=== PATIENT | female | born 1960 | race African-American/Black ===

== ENCOUNTER → 2016-09-18 | Outpatient (CLI) | payer MEDICARE, MEDICAID ==
--- NOTE | 2016-09-19 17:19 | WOMENS IMAGING REPORT ---
EXAM DESCRIPTION: BILAT SCREENING MAMMO W/CAD COMPLETED DATE/TIME: 09/19/2016 3:24 pm REASON FOR STUDY: ROUTINE BILATERAL SCREENING;Z12.31 Z12.31 ENCNTR SCREEN MAMMOGRAM FOR MALIGNANT N EOPLASM OF CHUY COMPARISON: Multiple since 2008 TECHNIQUE: Standard craniocaudal and mediolateral oblique views of each breast recorded using 99degrees Customa l acquisition. LIMITATIONS: None. FINDINGS: No masses, calcifications or architectural distortion. No areas of suspicion. Read with the assistance of CAD. .[facility] - R2 Cenova Version 1.3 .[facility] - R2 Cenova Version 1.3 .[facility] - R2 Cenova Version 2.4 .[facility] - R2 Cenova Version 2.4 .[facility] - R2 Door Slinger Version 9.2 BREAST DENSITY: c. The breasts are heterogeneously dense, which may obscure small masses. BIRAD: 1 NEGATIVE RECOMMENDATION: ROUTINE SCREENING Please consider bilateral screening tomosynthesis in September 2016, given heterogeneously dense tissue COMMENT: PATIENT NOTIFIED BY LETTER. The [employer] recommends an annual screening mammogram for women aged 40 years or over. Each patient will receive a reminder prior to the anniversary date of her mammogram. The [employer] (ACR) has developed recommendations for screening MRI of the breast s in certain patient populations, to be used in conjunction with mammography. Breast MRI surveillanc e may be appropriate for women with more than 20% lifetime risk of developing breast cancer as deter mined by genetic testing, significant family history of the disease, or history of mantle radiation f or Hodgkins Disease. ACR Practice Guidelines 2008. TECHNICAL DOCUMENTATION: FINDING NUMBER: (1) ASSESSMENT: (1) JOB ID: [id number] [employer]- All Rights Reserved
== END ==
LOC: WI 13:38
PROVIDERS: ATTEND Nurse Practitioner Psychiatric/Mental Health
DX: Z12.31 Encounter for screening mammogram for malignant neoplasm of breast (principal)
CPT/HCPCS: 77067; G0202

== ENCOUNTER 2017-02-19 16:32 | Inpatient (IN) | payer MEDICAID, MEDICARE ==
--- NOTE | 2017-02-19 17:05 | ER Document Report ---
ED Medical Screen (RME) - General Chief Complaint: S/S of Possible Stroke Stated Complaint: LEFT SIDE BODY TINGLING,SLURRED SPEECH Notes: Patient is a 56-year-old female presenting to the emergency department for possible stroke. Patient presents with left-sided weakness, numbness, slurred speech and left facial droop. Patient states her symptoms were onset in the late afternoon on Saturday. Patient states that when she uses her left arm it is very weak and her left leg keeps "giving out" when she tries to walk or stand. Patient also complains of some intermittent blurry vision. Patient has a history of hypertension but has not been taking her medication for 1 week because she was out of town and did not have them with her. Patient states she takes 3 medications for hypertension but does not know the names of them. Patient states she has a history of a mild CVA. I have greeted and performed a rapid initial assessment of this patient. A comprehensive ED assessment and evaluation of the patient, analysis of test results and completion of the medical decision making process will be conducted by additional ED providers. TRAVEL OUTSIDE OF THE [place] IN LAST 30 DAYS: No - Related Data Allergies/Adverse Reactions: codeine [Codeine] Adverse Reaction (Verified 02/19/17 19:00) Nausea Past Medical History - Past Medical History Cardiac Medical History: Reports: Hx Hypertension Denies: Hx Coronary Artery Disease, Hx Heart Attack Pulmonary Medical History: Denies: Hx Asthma, Hx Bronchitis, Hx COPD, Hx Pneumonia Neurological Medical History: Denies: Hx Cerebrovascular Accident, Hx Seizures Renal/ Medical History: Denies: Hx Peritoneal Dialysis Musculoskeltal Medical History: Reports Hx Arthritis Psychiatric Medical History: Reports: Hx Depression Past Surgical History: Reports: Hx Appendectomy, Hx Hysterectomy - Immunizations Hx Diphtheria, Pertussis, Tetanus Vaccination: No Physical Exam - Vital signs Vitals: Temp Pulse Resp BP Pulse Ox 98 F 62 16 194/99 H 100 02/19/17 16:39 02/19/17 16:39 02/19/17 16:39 02/19/17 16:39 02/19/17 16:39 - Notes Notes: GENERAL: Alert, interacts well. HEAD: Left-sided facial droop. LUNGS: Clear to auscultation bilaterally, no wheezes, rales, or rhonchi. No respiratory distress. HEART: Regular rate and rhythm. No murmurs, gallops, or rubs. EXTREMITIES: Left upper extremity pronator drift. Left lower extremity weakness. NEUROLOGICAL: Alert and oriented x3. Normal speech. Course - Vital Signs Vital signs: Temp Pulse Resp BP Pulse Ox 98.6 F 57 L 16 127/78 H 98 02/22/17 09:22 02/22/17 09:22 02/22/17 09:22 02/22/17 09:22 02/22/17 09:22 - Laboratory Result Diagrams: 02/20/17 05:50 02/20/17 05:50 Laboratory results interpreted by me: 02/19/17 02/19/17 02/19/17 17:46 17:46 17:46 Hgb 10.8 L Hct 33.3 L MCH 26.7 L RDW 16.7 H BUN 24 H Creatinine 1.34 H Est GFR ( Amer) 49 L Est GFR (Non-Af Amer) 41 L TSH 0.42 L Doctor's Discharge - Discharge Clinical Impression: Stroke-like symptoms, Hypertensive urgency, CKD (chronic kidney disease), stage III, Noncompliance Condition: Stable Disposition: ADMITTED INPATIENT Scribe Documentation - Scribe Written by Anuradha:: Anuradha Montgomery, 02/19/2017 17:01 acting as scribe for :: Theresa
--- NOTE | 2017-02-19 17:19 | ER Document Report ---
ED Neuro Symptoms/Deficit <DANIKACOREY Deluca - Last Filed: 02/19/17 19:48> - General Mode of Arrival: Ambulatory Information source: Patient Notes: Patient is a 56-year-old female who presents to the emergency department today with complaints of left-sided weakness beginning 2 days ago. Patient admits to being noncompliant with her blood pressure medications. Patient was hypertensive on arrival. Patient states her left side has been weak since Saturday (2 days ago). Patient states she has a history of lupus. TRAVEL OUTSIDE OF THE [place] IN LAST 30 DAYS: No - HPI Onset: Other Symptoms are: Constant Duration: Continues in ED <SURAJ SNIDER - Last Filed: 02/19/17 20:03> <MAGDA PUGH - Last Filed: 02/19/17 23:28> - General Chief Complaint: S/S of Possible Stroke Stated Complaint: LEFT SIDE BODY TINGLING,SLURRED SPEECH Time Seen by Provider: 02/19/17 17:04 - Related Data Allergies/Adverse Reactions: codeine [Codeine] Adverse Reaction (Verified 02/19/17 19:00) Nausea Past Medical History - General Information source: Patient - Social History Smoking Status: Never Smoker Cigarette use (# per day): No Frequency of alcohol use: None Drug Abuse: None Lives with: Family Family History: Reviewed & Not Pertinent, CAD - Mother had a heart attack Patient has suicidal ideation: No Patient has homicidal ideation: No - Past Medical History Cardiac Medical History: Reports: Hx Hypertension Musculoskeltal Medical History: Reports Hx Arthritis Psychiatric Medical History: Reports: Hx Depression Past Surgical History: Reports: Hx Appendectomy, Hx Hysterectomy - Immunizations Hx Diphtheria, Pertussis, Tetanus Vaccination: No <SURAJ SNIDER - Last Filed: 02/19/17 20:03> Review of Systems - Review of Systems Constitutional: No symptoms reported EENT: No symptoms reported Cardiovascular: No symptoms reported Respiratory: No symptoms reported Gastrointestinal: No symptoms reported Genitourinary: No symptoms reported Female Genitourinary: No symptoms reported Musculoskeletal: No symptoms reported Skin: No symptoms reported Hematologic/Lymphatic: No symptoms reported Neurological/Psychological: See HPI, Weakness - left sided weakness, Headaches -: Yes All other systems reviewed and negative <SURAJ SNIDER - Last Filed: 02/19/17 20:03> Physical Exam - Vital signs Vitals: Temp Pulse Resp BP Pulse Ox 98 F 62 16 194/99 H 100 02/19/17 16:39 02/19/17 16:39 02/19/17 16:39 02/19/17 16:39 02/19/17 16:39 <DANIKACOREY Deluca - Last Filed: 02/19/17 19:48> - Vital signs Vitals: Temp Pulse Resp BP Pulse Ox 98 F 84 16 216/103 H 100 02/19/17 16:39 02/19/17 16:39 02/19/17 16:39 02/19/17 16:39 02/19/17 16:39 <SURAJ SNIDER - Last Filed: 02/19/17 20:03> - Vital signs Vitals: Temp Pulse Resp BP Pulse Ox 98 F 62 16 194/99 H 100 02/19/17 16:39 02/19/17 16:39 02/19/17 16:39 02/19/17 16:39 02/19/17 16:39 Interpretation: Hypertensive - General General appearance: Alert In distress: Mild - HEENT Head: Normocephalic, Atraumatic Eyes: Other - exopthalmos Conjunctiva: Normal Cornea: Normal Extraocular movements intact: Yes Eyelashes: Normal Pupils: PERRL Mouth/Lips: Normal Pharynx: Normal Neck: Normal - Respiratory Respiratory status: No respiratory distress Breath sounds: Normal - Cardiovascular Rhythm: Regular - Abdominal Inspection: Normal Tenderness: Nontender - Back Back: Normal - Extremities General upper extremity: Normal inspection, Nontender General lower extremity: Normal inspection, Nontender - Neurological Neuro grossly intact: No Cognition: Normal Orientation: AAOx4 [place] Coma Scale Eye Opening: Spontaneous [place] Coma Scale Verbal: Oriented Jose Ramon Coma Scale Motor: Obeys Commands Jose Ramon Coma Scale Total: 15 Cranial nerves: Facial palsy Motor strength normal: RUE, RLE. 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 Sensory: Normal - Psychological Associated symptoms: Normal affect, Normal mood - Skin Skin Temperature: Warm Skin Moisture: Dry Skin Color: Normal <MAGDA PUGH - Last Filed: 02/19/17 23:28> Course - Vital Signs Vital signs: Temp Pulse Resp BP Pulse Ox 98 F 76 17 186/104 H 98 02/19/17 16:39 02/19/17 17:39 02/19/17 19:21 02/19/17 19:21 02/19/17 19:21 - Laboratory Result Diagrams: 02/19/17 17:46 02/19/17 17:46 Laboratory results interpreted by me: 02/19/17 02/19/17 17:46 17:46 Hgb 10.8 L Hct 33.3 L MCH 26.7 L RDW 16.7 H BUN 24 H Creatinine 1.34 H Est GFR ( Amer) 49 L Est GFR (Non-Af Amer) 41 L <COREY GARNICA - Last Filed: 02/19/17 19:48> - Vital Signs Vital signs: Temp Pulse Resp BP Pulse Ox 98 F 84 16 216/103 H 100 02/19/17 16:39 02/19/17 16:39 02/19/17 16:39 02/19/17 16:39 02/19/17 16:39 - Laboratory Result Diagrams: 02/19/17 17:46 02/19/17 17:46 <SURAJ SNIDER - Last Filed: 02/19/17 20:03> - Re-evaluation Re-evalutation: 02/19/17 20:22 Patient is a 56-year-old female who comes in complaining of left-sided weakness. Patient was last normal apparently on Saturday. Patient's symptoms are improving. Patient has also been extremely hypertensive and noncompliant with her medications. Patient blood pressure responded well to labetalol but apparently she vomited after. Patient is going to be tested with swallow evaluation and given her home Norvasc. No acute findings on CT. Patient is not a candidate for lytics. MRI MRA has been ordered. Patient will be admitted to Dr. Dean - Vital Signs Vital signs: Temp Pulse Resp BP Pulse Ox 98 F 76 15 198/107 H 98 02/19/17 16:39 02/19/17 17:39 02/19/17 19:14 02/19/17 19:14 02/19/17 19:14 - Laboratory Result Diagrams: 02/19/17 17:46 02/19/17 17:46 Laboratory results interpreted by me: 02/19/17 02/19/17 17:46 17:46 Hgb 10.8 L Hct 33.3 L MCH 26.7 L RDW 16.7 H BUN 24 H Creatinine 1.34 H Est GFR ( Amer) 49 L Est GFR (Non-Af Amer) 41 L - Diagnostic Test Radiology reviewed: Reports reviewed - EKG Interpretation by Me EKG shows normal: Sinus rhythm Rate: Normal Rhythm: NSR <MAGDA PUGH - Last Filed: 02/19/17 23:28> Critical Care Note - Critical Care Note Total time excluding time spent on procedures (mins): 45 - To the management of left-sided weakness, multiple re-evaluations, counseling of patient and family <MAGDA PUGH - Last Filed: 02/19/17 23:28> ED Alteplase [employer]/Exc Criteria - Inclusion Criteria: 1: Patient presented to ED within 3 hours of acute ischemic stroke symptom onset ? -: No 2: Did baseline CT exclude intracranial hemorrhage and/or other risk factors? -: Yes 3: Is the age of the patient 18 years of age or greater? : If any of the above questions are answered "NO" then stop, patient is not a candidate for Alteplase, : If all of the above questions are answered "YES" then continue with Exclusion Criteria. - Exclusion Criteria: 1: Is there evidence of intracranial hemorrhage on baseline CT? 2: Is there suspicion of subarachnoid hemorrhage (even if CT negative)? 3: Is there a history of serious head trauma, recent previous stroke or ME within 3 months? 4: Does the patient have a clinical presentation consistent with ME or post-ME pericarditis? 5: Is there history of intracranial hemorrhage? 6: On repeated measurement is Systolic BP greater than 185mmHg or Diastolic BP greater that 110 mmHg and is aggressive treatment needed to reduce blood pressure to these limits (e.g. constant infusion of an anti-hypertensive)? 7: Did the patient awake with stroke symptoms? 8: Has the patient had a lumbar puncture or an arterial puncture at a non- compressile site within 7 days? 9: With in the last 14 days did the patient have surgery or major trauma? 10: Is the patient or less than 2 weeks? 11: Was there any active bleeding or acute trauma? 12: Does the patient have intracranial neoplasm, arteriovenous malformation or aneurysm? 13: Does the patient have abnormal glucose (less than 50 or greater than 400mg/ dl)? Record glucose in Comment. 14: Patient has rapidly improving symptoms at the time Alteplase is to be Administered. -: Yes 15: Does the patient have any risks for bleeding, including but not limited to: a.: Current use of Coumadin with PT greater than 15 seconds or INR greater than 1.7. b.: Current use of Pradaxa (Dabigatran). c.: Heparin administereed within the past 48 hours and PTT elevated. d.: Platelet count less than 100,000/mm. e.: Major surgery or serious trauma within 14 days. f.: Gastrointestinal or gynecological urinary bleeding within 14 days. g.: Myocardial Infarction (ME) within 3 months. : If the answer to any of the above questions is "YES" then stop, the patient is not a candidate for Alteplase. : If the answer to all of the above questions is "NO" then the patient may be eligible for the Administration of Alteplase. : If the patient is noted to have seizure activity at onset of Stroke symptoms; Consult Neurologist for further evaluation. - The patient is: -: Included and is eligible to receive Alteplase. *Initiate bed placement at higher level of care* --: No Reviewd risks & benefits of thrombolytic therapy: I have reviewed the risks and benefits of thrombolytic therapy with the patient and/or his/her family. -: Excluded and not eligible to receive Alteplase for the above exclusions. --: Yes -: Excluded and not eligible to receive Alteplase for other reasons (specify in comments): - Diagnosis of TIA: -: Patient presented with transient symptoms that are now resolved and no other neurologic findings are currently present. List symptoms in comments. -: Yes -: Patient is NOT a candidate for tPA. -: Yes -: ____(put name in comment) has been consulted for admission and continued evaluation of risk factor assessment. <MAGDA PUGH - Last Filed: 02/19/17 23:28> ED NIH Stroke Scale Discharge <COREY GARNICA - Last Filed: 02/19/17 19:48> <SURAJ SNIDER - Last Filed: 02/19/17 20:03> - Discharge Admitting Provider: [facility] Admitted: BARRETT Ling Attestation: 02/19/17 23:28 I personally performed the services described in the documentation, reviewed and edited the documentation which was dictated to the scribe in my presence, and it accurately records my words and actions. <MAGDA PUGH - Last Filed: 02/19/17 23:28> - Discharge Clinical Impression: Stroke-like symptoms, Hypertensive urgency, CKD (chronic kidney disease), stage III, Noncompliance Condition: Stable Disposition: ADMITTED INPATIENT Scribe Documentation - Scribe Written by Anuradha:: Anuradha Bojorquez, 02/19/20172013 acting as scribe for :: Bhargav <SURAJ SNIDER - Last Filed: 02/19/17 20:03>
--- NOTE | 2017-02-19 17:33 | RADIOLOGY REPORT (SQ) ---
EXAM DESCRIPTION: CT HEAD WITHOUT COMPLETED DATE/TIME: 02/19/2017 5:24 pm REASON FOR STUDY: Left sided weakness COMPARISON: None. TECHNIQUE: Axial images acquired through the brain without intravenous contrast. Images reviewed wi th bone, brain and subdural windows. Images stored on PACS. All CT scanners at this facility use dose modulation, iterative reconstruction, and/or weight based d osing when appropriate to reduce radiation dose to as low as reasonably achievable (ALARA). [facility]: Dose Right [facility]: CareDose [facility]: Dose Right [facility]: Teradose 4D [facility]: [employer] RADIATION DOSE: 64.61 mGy. LIMITATIONS: None. FINDINGS: VENTRICLES: Normal size and contour. CEREBRUM: No masses hemorrhage or midline shift. Vizcarra-white differentiation is unremarkable. Scatte red calcifications are stable in appearance. CEREBELLUM: Stable cerebellar calcifications. No mass or hemorrhage. EXTRAAXIAL SPACES: No fluid collections. No masses. ORBITS AND GLOBE: No intra- or extraconal masses. Normal contour of globe without masses. CALVARIUM: No fracture. PARANASAL SINUSES: No fluid or mucosal thickening. SOFT TISSUES: No mass or hematoma. OTHER: No other significant finding. IMPRESSION: Stable unenhanced CT of the brain. No acute findings. TECHNICAL DOCUMENTATION: JOB ID: [id number] Quality ID # [id number]: Final reports with documentation of one or more dose reduction techniques (e.g., Au tomated exposure control, adjustment of the mA and/or kV according to patient size, use of iterative reconstruction technique) 2010 [employer]- All Rights Reserved
--- NOTE | 2017-02-19 17:37 | RADIOLOGY REPORT (SQ) ---
EXAM DESCRIPTION: CHEST SINGLE VIEW COMPLETED DATE/TIME: 02/19/2017 5:29 pm REASON FOR STUDY: CVA COMPARISON: 01/09/2016 EXAM PARAMETERS: NUMBER OF VIEWS: One view. TECHNIQUE: Single frontal radiographic view of the chest acquired. RADIATION DOSE: NA LIMITATIONS: None. FINDINGS: LUNGS AND PLEURA: No opacities, masses or pneumothorax. No pleural effusion. MEDIASTINUM AND HILAR STRUCTURES: No masses. Contour normal. HEART AND VASCULAR STRUCTURES: Heart normal in size. Normal vasculature. BONES: No acute findings. HARDWARE: None in the chest. OTHER: No other significant finding. IMPRESSION: NO ACUTE RADIOGRAPHIC FINDING IN THE CHEST. TECHNICAL DOCUMENTATION: JOB ID: [id number]
[2017-02-19 18:10] LABS: ABSOLUTE LYMPHOCYTES (AUTO) 1.3 10^3/uL (0.5-4.7); ABSOLUTE MONOCYTES (AUTO) 0.4 10^3/uL (0.1-1.4); ABSOLUTE NEUT (AUTO) 3.7 10^3/uL (1.7-8.2); BASOPHILS % (AUTO) 0.2 % (0-2); EOSINOPHILS % (AUTO) 0.5 % (0-6); HEMATOCRIT 33.3 % (36.0-47.0); HEMOGLOBIN 10.8 g/dL (12.0-15.5); HGB HCT DIFFERENCE -0.9; LYMPHOCYTES % (AUTO) 23.4 % (13-45); MEAN CORPUSCULAR HEMOGLOBIN 26.7 pg (27.0-33.4); MEAN CORPUSCULAR HGB CONC 32.4 g/dL (32.0-36.0); MEAN CORPUSCULAR VOLUME 82 fl (80-97); MONOCYTES % (AUTO) 7.1 % (3-13); PROTHROMBIN TIME 12.8 SEC (11.4-15.4); RED BLOOD COUNT 4.04 10^6/uL (3.72-5.28); RED CELL DISTRIBUTION WIDTH 16.7 % (11.5-14.0); SEGMENTED NEUTROPHILS % (AUTO) 68.8 % (42-78); WHITE BLOOD COUNT 5.4 10^3/uL (4.0-10.5)
[2017-02-19 18:23] LABS: ALANINE AMINOTRANSFERASE 13 U/L (9-52); ALBUMIN 3.7 g/dL (3.5-5.0); ALKALINE PHOSPHATASE 56 U/L (38-126); ANION GAP 7 (5-19); ASPARTATE AMINO TRANSFERASE 14 U/L (14-36); BILIRUBIN,DIRECT 0.2 mg/dL (0.0-0.4); BILIRUBIN,TOTAL 0.5 mg/dL (0.2-1.3); BLOOD UREA NITROGEN 24 mg/dL (7-20); CARBON DIOXIDE 29 mmol/L (22-30); CHLORIDE 105 mmol/L (98-107); CREATINE KINASE 62 U/L (30-135); CREATININE RESULT 1.34 mg/dL (0.52-1.25); GLUCOSE 90 mg/dL (75-110); POTASSIUM 3.8 mmol/L (3.6-5.0); SODIUM 141.4 mmol/L (137-145); TOTAL PROTEIN 6.8 g/dL (6.3-8.2)
[2017-02-19] MEDS ORDERED: LABETALOL HCL INJ 20 MG/4 ML DISP.SYRIN IV ONE (18:36)
[2017-02-19 18:37] LABS: CREATINE KINASE MB < 0.22 ng/mL (<4.55); TROPONIN I < 0.012 ng/mL
[2017-02-19] MEDS ORDERED: AMLODIPINE BESYLATE 10 MG TABLET PO ONE (20:36)
--- NOTE | 2017-02-19 23:03 | RADIOLOGY REPORT (SQ) ---
EXAM DESCRIPTION: MRA HEAD WITHOUT COMPLETED DATE/TIME: 02/19/2017 10:55 pm REASON FOR STUDY: weakness, headache COMPARISON: None. TECHNIQUE: Axial 3-D [id number] acquisition imaging performed through the brain in the area of t he [place] of [place]. Images reformatted using 3-D MIPS. LIMITATIONS: None. FINDINGS: SOURCE IMAGES: No unexpected findings on source images. No large masses. 3-D MIP: No aneurysm. No occlusions. No significant stenosis. OTHER: No other significant finding. IMPRESSION: NORMAL MRA OF THE [place]. TECHNICAL DOCUMENTATION: JOB ID: [id number] [employer]- All Rights Reserved
--- NOTE | 2017-02-19 23:07 | RADIOLOGY REPORT (SQ) ---
EXAM DESCRIPTION: MRA NECK COMBO COMPLETED DATE/TIME: 02/19/2017 10:56 pm REASON FOR STUDY: weakness, headache COMPARISON: None. TECHNIQUE: MRA of the carotid and vertebral arteries was performed using 2D and 3D [id number] te chniques without and with the use of gadolinium. 3-D MIPs performed at the workstation and stored on PACS. CONTRAST TYPE AND DOSE: 20 mL ProHance RENAL FUNCTION: Creatinine 1.34, GFR 49 LIMITATIONS: None. FINDINGS: GREAT VESSEL ORIGINS: Normal. No stenoses. VERTEBRAL ARTERIES: No stenoses. No evidence for aneurysm or dissection. RIGHT CAROTID SYSTEM: No significant stenosis. LEFT CAROTID SYSTEM: No significant stenosis. OTHER: No other significant finding. IMPRESSION: NORMAL MRA OF THE CAROTIDS WITH AND WITHOUT CONTRAST. COMMENT: Quality ID #[id number]: Measurements of distal internal carotid diameter were used as the denomina tor for stenosis measurement. TECHNICAL DOCUMENTATION: JOB ID: [id number] [employer]- All Rights Reserved
--- NOTE | 2017-02-19 23:17 | RADIOLOGY REPORT (SQ) ---
EXAM DESCRIPTION: MRI HEAD COMBO COMPLETED DATE/TIME: 02/19/2017 10:56 pm REASON FOR STUDY: weakness, headache COMPARISON: CT brain dated 02/19/2017, MRI brain dated 11/04/2016 TECHNIQUE: Multiplanar imaging includes noncontrasted T1, T2, FLAIR, and Diffusion with ADC map seq uences. Contrast enhanced T1 images. Images stored on PACS. CONTRAST TYPE AND DOSE: 20 mL ProHance RENAL FUNCTION: GFR 49, creatinine 1.34 LIMITATIONS: None. FINDINGS: ANATOMY: No anomalies. Normal vascular flow voids. Pituitary fossa normal. CSF SPACES: Normal size and contour. No hemorrhage. CEREBRUM: There scattered periventricular subcortical white matter lesions consistent with small vess el disease. No midline shift, mass effect or hemorrhage. Abnormal signal in the basal ganglia regio ns bilaterally is consistent with calcification demonstrated on CT. There is no abnormal enhancement . POSTERIOR FOSSA: There is calcification in the posterior fossa as well. No hemorrhage, midline shift or mass effect. DIFFUSION: Negative for acute or subacute infarction. ORBITS: No masses. Globes normal. PARANASAL SINUSES: No fluid levels. Mucosa normal. OTHER: No other significant finding. IMPRESSION: Fairly extensive periventricular subcortical white matter changes consistent with either a demyelinating process or dysmyelinating process. Findings have progressed since 2012. TECHNICAL DOCUMENTATION: JOB ID: [id number] [employer]- All Rights Reserved
[2017-02-19] MEDS ORDERED: LISINOPRIL 10 MG TABLET PO ONE (23:26)
[2017-02-20 06:09] LABS: ABSOLUTE EOSINOPHILS # (AUTO) 0.1 10^3/uL (0.0-0.6); ABSOLUTE LYMPHOCYTES (AUTO) 1.3 10^3/uL (0.5-4.7); ABSOLUTE MONOCYTES (AUTO) 0.5 10^3/uL (0.1-1.4); ABSOLUTE NEUT (AUTO) 3.7 10^3/uL (1.7-8.2); BASOPHILS % (AUTO) 0.4 % (0-2); EOSINOPHILS % (AUTO) 1.1 % (0-6); HEMATOCRIT 31.1 % (36.0-47.0); HEMOGLOBIN 10.2 g/dL (12.0-15.5); HGB HCT DIFFERENCE -0.5; LYMPHOCYTES % (AUTO) 23.4 % (13-45); MEAN CORPUSCULAR HEMOGLOBIN 26.5 pg (27.0-33.4); MEAN CORPUSCULAR HGB CONC 32.9 g/dL (32.0-36.0); MEAN CORPUSCULAR VOLUME 81 fl (80-97); MONOCYTES % (AUTO) 9.1 % (3-13); RED BLOOD COUNT 3.85 10^6/uL (3.72-5.28); RED CELL DISTRIBUTION WIDTH 16.9 % (11.5-14.0); WHITE BLOOD COUNT 5.7 10^3/uL (4.0-10.5)
[2017-02-20] MEDS: LANSOPRAZOLE 30 MG TAB.RAP.DR PO SCH (06:15)
[2017-02-20 06:34] LABS: ALANINE AMINOTRANSFERASE 16 U/L (9-52); ALBUMIN 3.3 g/dL (3.5-5.0); ALKALINE PHOSPHATASE 51 U/L (38-126); ANION GAP 10 (5-19); ASPARTATE AMINO TRANSFERASE 13 U/L (14-36); BILIRUBIN,DIRECT 0.2 mg/dL (0.0-0.4); BILIRUBIN,TOTAL 0.4 mg/dL (0.2-1.3); BLOOD UREA NITROGEN 21 mg/dL (7-20); CARBON DIOXIDE 27 mmol/L (22-30); CHLORIDE 105 mmol/L (98-107); CHOLESTEROL 210.88 mg/dL (0-200); GLUCOSE 108 mg/dL (75-110); POTASSIUM 3.8 mmol/L (3.6-5.0); SODIUM 141.9 mmol/L (137-145)
--- NOTE | 2017-02-20 09:13 | EKG REPORT ---
SEVERITY:- NORMAL ECG - SINUS RHYTHM : Confirmed by: Teena Najera MD 20-Feb-2017 09:12:30
[2017-02-20] MEDS: ASPIRIN 81 MG TABLET, CHEWABLE PO SCH (09:44)
[2017-02-20] MEDS: ENOXAPARIN SODIUM INJ 40 MG/0.4 ML DISP.SYRIN SUBCUT SCH (09:44)
[2017-02-20] MEDS: AMLODIPINE BESYLATE 10 MG TABLET PO SCH (09:44)
[2017-02-20] MEDS ORDERED: LISINOPRIL 10 MG TABLET PO SCH (10:00)
[2017-02-20] MEDS ORDERED: HYDRALAZINE HCL 50 MG TABLET PO SCH (10:00)
--- NOTE | 2017-02-20 18:44 | PDOC H&P ---
History of Present Illness Admission Date/PCP: 02/20/17 05:28 [facility] History of Present Illness: ADEN ELMROE is a 56 year old female known to my practice but noncompliant with medical treatment recommendation ad followup. She presented to the ED with complain of left sided numbness with tingling sensation and slurred speech for couple of days. She reported falling at outside of her home due to buckled left knee on 02/16/2017. Patient reported numbness felling in her left and and foot. She zamora been out of her anti-hypertensive medication for about 1 week due to leaving medication behind in [facility] during visit with her father. She denied any chest pain, palpitation, loss of consciousness, chest pain, nausea, vomiting, or abdominal pain. Her initial evaluation was remarkable for significantly elevated blood pressure. Her co-morbidities include hypertension, Osteoarthritis, Depression and systemic Lupus. She denied any illicit drug usage , cigarette smoking or alcohol abuse. Past Medical History Cardiac Medical History: Reports: Hypertension Denies: Coronary Artery Disease, Myocardial Infarction Pulmonary Medical History: Denies: Asthma, Bronchitis, Chronic Obstructive Pulmonary Disease (COPD), Pneumonia Neurological Medical History: Denies: Seizures Musculoskeltal Medical History: Reports: Arthritis Psychiatric Medical History: Reports: Depression Hematology: Reports: Anemia Past Surgical History Past Surgical History: Reports: Appendectomy, Hysterectomy Social History Lives with: Family Smoking Status: Current Some Day Smoker Cigarettes Packs Per Day: 0.5 Number of Years Smokin Last Time Smoked: 02/19/17 Frequency of Alcohol Use: None Hx Recreational Drug Use: No Drugs: None Hx Prescription Drug Abuse: No - Advance Directive Resuscitation Status: Full Code Family History Family History: Reviewed & Not Pertinent, CAD - Mother had a heart attack Parental Family History Reviewed: Yes Children Family History Reviewed: Yes Sibling(s) Family History Reviewed.: Yes Medication/Allergy Home Medications: Amlodipine Besylate [Norvasc 10 mg Tablet] 10 mg PO DAILY #30 tablet 01/11/16 Aspirin [Ecotrin 81 mg EC Tablet] 81 mg PO DAILY #30 tabec 01/11/16 Hydralazine HCl [Apresoline 50 mg Tablet] 50 mg PO Q12 #60 tablet 01/11/16 Lisinopril [Prinivil 10 mg Tablet] 40 mg PO DAILY #30 tablet 01/11/16 Omeprazole [Prilosec] 40 mg PO BID #28 capsule. 01/11/16 Allergies/Adverse Reactions: codeine [Codeine] Adverse Reaction (Verified 02/19/17 19:00) Nausea Review of Systems Constitutional: ABSENT: chills, fever(s), headache(s), weight gain, weight loss Eyes: ABSENT: visual disturbances Ears: ABSENT: hearing changes Nose, Mouth, and Throat: ABSENT: as per HPI, headache(s), mouth pain, sore throat, vertigo, other Cardiovascular: ABSENT: chest pain, dyspnea on exertion, edema, orthropnea, palpitations Respiratory: ABSENT: cough, hemoptysis Gastrointestinal: ABSENT: abdominal pain, constipation, diarrhea, hematemesis, hematochezia, nausea, vomiting Genitourinary: ABSENT: dysuria, hematuria Musculoskeletal: ABSENT: joint swelling Integumentary: ABSENT: rash, wounds Neurological: PRESENT: abnormal speech, numbness. ABSENT: as per HPI, abnormal gait, abnormal movements, confusion, convulsions, dizziness, focal weakness, frequent falls, lack of coordination, memory loss, paresthesias, restless legs, syncope, tingling, tremor(s), vertigo, weakness, other Psychiatric: ABSENT: anxiety, depression, homidical ideation, suicidal ideation Endocrine: ABSENT: cold intolerance, heat intolerance, polydipsia, polyuria Hematologic/Lymphatic: ABSENT: easy bleeding, easy bruising, lymphadenopathy Physical Exam Vital Signs: Temp Pulse Resp BP Pulse Ox 98.3 F 64 18 153/97 H 100 02/20/17 16:03 02/20/17 16:03 02/20/17 16:03 02/20/17 16:03 02/20/17 16:03 Intake & Output 02/19/17 02/20/17 02/21/17 06:59 06:59 06:59 Intake Total 20 356 Output Total 200 Balance 20 156 General appearance: PRESENT: no acute distress, well-developed, well-nourished Head exam: PRESENT: atraumatic, normocephalic Eye exam: PRESENT: conjunctiva pink, EOMI, PERRLA. ABSENT: scleral icterus Ear exam: PRESENT: normal external ear exam Mouth exam: PRESENT: moist, tongue midline Teeth exam: ABSENT: dental caries, dental tenderness, edentulous, poor dentation , other Throat exam: ABSENT: post pharyngeal erythema, tonsillar erythema, tonsillar exudate, tonsillogmegaly, other Neck exam: PRESENT: full ROM. ABSENT: carotid bruit, JVD, lymphadenopathy, thyromegaly Respiratory exam: PRESENT: clear to auscultation meena Cardiovascular exam: PRESENT: RRR. ABSENT: diastolic murmur, rubs, systolic murmur Pulses: PRESENT: normal dorsalis pedis pul, +2 pedal pulses bilateral Vascular exam: PRESENT: normal capillary refill GI/Abdominal exam: PRESENT: normal bowel sounds, soft. ABSENT: distended, guarding, mass, organolmegaly, rebound, tenderness Rectal exam: PRESENT: deferred Extremities exam: ABSENT: pedal edema Neurological exam: PRESENT: alert, awake, oriented to person, oriented to place , oriented to time, oriented to situation, CN II-XII grossly intact. ABSENT: motor sensory deficit Psychiatric exam: PRESENT: appropriate affect, normal mood. ABSENT: homicidal ideation, suicidal ideation Skin exam: PRESENT: dry, intact, warm. ABSENT: cyanosis, rash Results Laboratory Results: 02/20/17 05:50 02/20/17 05:50 02/20/17 02/20/17 05:50 05:50 WBC 5.7 RBC 3.85 Hgb 10.2 L Hct 31.1 L MCV 81 MCH 26.5 L MCHC 32.9 RDW 16.9 H Plt Count 236 Seg Neutrophils % 66.0 Lymphocytes % 23.4 Monocytes % 9.1 Eosinophils % 1.1 Basophils % 0.4 Absolute Neutrophils 3.7 Absolute Lymphocytes 1.3 Absolute Monocytes 0.5 Absolute Eosinophils 0.1 Absolute Basophils 0.0 Sodium 141.9 Potassium 3.8 Chloride 105 Carbon Dioxide 27 Anion Gap 10 BUN 21 H Creatinine 1.20 Est GFR ( Amer) 56 L Est GFR (Non-Af Amer) 46 L Glucose 108 Calcium 9.0 Total Bilirubin 0.4 AST 13 L ALT 16 Alkaline Phosphatase 51 Total Protein 6.0 L Albumin 3.3 L Cholesterol 210.88 H Impressions: Chest X-Ray 02/19/17 17:15 IMPRESSION: NO ACUTE RADIOGRAPHIC FINDING IN THE CHEST. Head CT 02/19/17 17:15 IMPRESSION: Stable unenhanced CT of the brain. No acute findings. Brain MRI with MRA 02/19/17 18:18 IMPRESSION: NORMAL MRA OF THE [place] OF [place]. Head MRI 02/19/17 18:18 IMPRESSION: Fairly extensive periventricular subcortical white matter changes consistent with either a demyelinating process or dysmyelinating process. Findings have progressed since 2013. Neck MRA 02/19/17 18:18 IMPRESSION: NORMAL MRA OF THE CAROT[place] WITH AND WITHOUT CONTRAST. Assessment & Plan - Diagnosis (1) Hypertensive urgency Is this a current diagnosis for this admission?: YesPlan: See admitting physician orders. (2) Stroke-like symptoms Is this a current diagnosis for this admission?: YesPlan: See admitting physician orders. (3) CKD (chronic kidney disease), stage III Is this a current diagnosis for this admission?: YesPlan: See admitting physician orders. 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
--- NOTE | 2017-02-20 19:17 | XCELERA REPORT ---
[address] [address] Transthoracic Echocardiogram Report Name: ADEN ELMORE Age: 56 yrs Gender: Female : 1960 Patient Status: Inpatient Patient Location: [id number]\S\335\S\A Study Date: 02/20/2017 08:48 AM Height: 61 in Weight: 113 lb BSA: 1.5 m2 Procedure: A complete two-dimensional transthoracic echocardiogram was performed (2D, M-mode, spectral and color flow Doppler). The study was technically adequate with some images being suboptimal in quality. Reason For Study: acute cva Ordering Physician: ALISIA RIVERA Performed By: Linette Marcum Interpretation Summary The left ventricular ejection fraction is normal. Doppler measurements suggest pseudonormalized left ventricular relaxation, which is associated with grade II/IV or mild to moderate diastolic dysfunction There is mild concentric left ventricular hypertrophy. The left ventricle is grossly normal size. Wall motion cannot be accurately commented on, but no definite regional wall motion abnormalities noted. The right ventricular systolic function is normal. The left atrial size is normal. The right atrium is normal in size There is a trace to mild amount of mitral regurgitation There is no mitral valve stenosis. There is a trace amount of aortic regurgitation There is no aortic valve stenosis Right ventricular systolic pressure is at the upper limits of normal There is a mild amount of tricuspid regurgitation The aortic root is not well visualized. The inferior vena cava appeared normal and decreased > 50% with respiration (RAP 5-10 mmHg) Minimal pericardial effusion. No definite cardiac source of CVA/TIA noted on this particular trans- thoracic study. Consider ARIEL if clinically indicated. May consider mobile cardiac telemetry monitoring (MCT) for ruling out transient AFIB. MMode/2D Measurements \T\ Calculations RVDd: 2.6 cm LVIDd: 3.9 cm FS: 41.6 % Ao root diam: 2.8 cm IVSd: 1.4 cm LVIDs: 2.3 cm EDV(Teich): 67.5 ml LVPWd: 1.2 cm ESV(Teich): 18.1 ml Ao root area: 6.2 cm2 EF(Teich): 73.2 % LA dimension: 2.6 cm Doppler Measurements \T\ Calculations MV E max delano: MV P1/2t max delano: Ao V2 max: LV V1 max P.0 cm/sec 75.0 cm/sec 124.5 cm/sec 4.6 mmHg MV A max delano: MV P1/2t: 67.2 msec Ao max PG: LV V1 max: 61.2 cm/sec 6.2 mmHg 107.6 cm/sec MV E/A: 1.2 MVA(P1/2t): 3.3 cm2 MV dec slope: 327.1 cm/sec2 MV dec time: 0.22 sec PA V2 max: PI end-d delano: TR max delano: 71.1 cm/sec 116.7 cm/sec 253.8 cm/sec PA max PG: TR max P.0 mmHg 25.8 mmHg Left Ventricle The left ventricle is grossly normal size. There is mild concentric left ventricular hypertrophy. The left ventricular ejection fraction is normal. Doppler measurements suggest pseudonormalized left ventricular relaxation, which is associated with grade II/IV or mild to moderate diastolic dysfunction. Wall motion cannot be accurately commented on, but no definite regional wall motion abnormalities noted. Right Ventricle The right ventricle is grossly normal size. There is normal right ventricular wall thickness. The right ventricular systolic function is normal. Atria The right atrium is normal in size. The left atrial size is normal. Interarterial septum not well visualized and not well dopplered. Cannot comment on ASD/PFO presence. Mitral Valve The mitral valve is grossly normal. There is no mitral valve stenosis. There is a trace to mild amount of mitral regurgitation. Aortic Valve The aortic valve is grossly normal. There is no aortic valve stenosis. There is a trace amount of aortic regurgitation. Tricuspid Valve The tricuspid valve is not well visualized, but is grossly normal. There is no tricuspid stenosis. There is a mild amount of tricuspid regurgitation. Right ventricular systolic pressure is at the upper limits of normal. Pulmonic Valve The pulmonic valve is not well visualized. Great Vessels The aortic root is not well visualized. The inferior vena cava appeared normal and decreased > 50% with respiration (RAP 5-10 mmHg). Effusions Minimal pericardial effusion. Incidental Findings No definite cardiac source of CVA/TIA noted on this particular trans- thoracic study. Consider ARIEL if clinically indicated. May consider mobile cardiac telemetry monitoring (MCT) for ruling out transient AFIB. : ALISIA RIVERA > Yang Villanueva
[2017-02-20] MEDS ORDERED: HYDRALAZINE HCL 50 MG TABLET PO ONE (19:30)
[2017-02-20] MEDS: ATORVASTATIN CALCIUM 20 MG TABLET PO SCH (21:36)
[2017-02-21] MEDS ORDERED: HYDRALAZINE HCL 50 MG TABLET PO SCH (06:00)
[2017-02-21] MEDS: LANSOPRAZOLE 30 MG TAB.RAP.DR PO SCH (06:00)
[2017-02-21] MEDS: ASPIRIN 81 MG TABLET, CHEWABLE PO SCH (10:04)
[2017-02-21] MEDS: AMLODIPINE BESYLATE 10 MG TABLET PO SCH (10:04)
[2017-02-21] MEDS: ENOXAPARIN SODIUM INJ 40 MG/0.4 ML DISP.SYRIN SUBCUT SCH (10:04)
[2017-02-21] MEDS: VALSARTAN 160 MG TABLET PO SCH (10:04)
[2017-02-21] MEDS: HYDRALAZINE HCL 50 MG TABLET PO SCH ×2 (14:22→21:32)
[2017-02-21] MEDS: ATORVASTATIN CALCIUM 20 MG TABLET PO SCH (21:33)
[2017-02-22] MEDS: HYDRALAZINE HCL 50 MG TABLET PO SCH (05:59)
[2017-02-22] MEDS: LANSOPRAZOLE 30 MG TAB.RAP.DR PO SCH (05:59)
--- NOTE | 2017-02-22 08:28 | PDOC PROGRESS REPORT ---
Subjective Progress Note for:: 02/21/17 Subjective:: No chest pain or difficult with breathing. No nausea, vomiting, or abdominal pain. No dizziness, headache or focal weakness. Numbness in left hand and feet improving. Physical Exam Vital Signs: Temp Pulse Resp BP Pulse Ox 97.9 F 61 20 161/96 H 100 02/21/17 03:39 02/21/17 03:39 02/21/17 03:39 02/21/17 03:39 02/21/17 03:39 Intake & Output 02/20/17 02/21/17 02/22/17 06:59 06:59 06:59 Intake Total 20 1466 Output Total 1950 Balance 20 -484 Weight 48.9 kg Physical Exam: General appearance: PRESENT: no acute distress, well-developed, well-nourished Head exam: PRESENT: atraumatic, normocephalic Eye exam: PRESENT: conjunctiva pink, EOMI, PERRLA. ABSENT: scleral icterus Mouth exam: PRESENT: moist, tongue midline Respiratory exam: PRESENT: clear to auscultation meena Cardiovascular exam: PRESENT: RRR. ABSENT: diastolic murmur, rubs, systolic murmur GI/Abdominal exam: PRESENT: normal bowel sounds, soft. ABSENT: distended, guarding, mass, organomegaly, rebound, tenderness Extremities exam: ABSENT: pedal edema Neurological exam: PRESENT: alert, awake, oriented to person, oriented to place , oriented to time, oriented to situation, CN II-XII grossly intact. ABSENT: motor sensory deficit Psychiatric exam: PRESENT: appropriate affect, normal mood. ABSENT: homicidal ideation, suicidal ideation Skin exam: PRESENT: dry, intact, warm. ABSENT: cyanosis, rash Results Laboratory Results: 02/20/17 05:50 02/20/17 05:50 Impressions: Chest X-Ray 02/19/17 17:15 IMPRESSION: NO ACUTE RADIOGRAPHIC FINDING IN THE CHEST. Head CT 02/19/17 17:15 IMPRESSION: Stable unenhanced CT of the brain. No acute findings. Brain MRI with MRA 02/19/17 18:18 IMPRESSION: NORMAL MRA OF THE [place] OF [place]. Head MRI 02/19/17 18:18 IMPRESSION: Fairly extensive periventricular subcortical white matter changes consistent with either a demyelinating process or dysmyelinating process. Findings have progressed since 2012. Neck MRA 02/19/17 18:18 IMPRESSION: NORMAL MRA OF THE CAROTIDS WITH AND WITHOUT CONTRAST. Assessment & Plan - Diagnosis (1) Hypertensive urgency Is this a current diagnosis for this admission?: YesPlan: See attending physician orders. I will discontinue Lisinopril. I will start her on Valsartan 320 mg po daily with intent to combine with Amlodipine upon discharge if BP is satisfactorily controlled. Increase Hydralazine to 100 mg po tid (2) Stroke-like symptoms Is this a current diagnosis for this admission?: YesPlan: See attending physician orders. (3) CKD (chronic kidney disease), stage III Is this a current diagnosis for this admission?: YesPlan: See attending physician orders. 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
--- NOTE | 2017-02-22 08:33 | PDOC DISCHARGE SUMMARY ---
General - Admit/Disc Date/PCP Admission Date/Primary Care Provider: 02/20/17 05:28 ALISIA NICOLE Discharge Date: 02/22/17 - Discharge Diagnosis (1) Hypertensive urgency Is this a current diagnosis for this admission?: Yes (2) Stroke-like symptoms Is this a current diagnosis for this admission?: Yes (3) CKD (chronic kidney disease), stage III Is this a current diagnosis for this admission?: Yes - Additional Information Resuscitation Status: Full Code Discharge Diet: Cardiac Discharge Activity: Activity As Tolerated Home Medications: Omeprazole [Prilosec] 40 mg PO BID #28 capsule. 01/11/16 Amlodipine/Valsartan/Hcthiazid [Wfghh-Olhcu-Ricr 10-320-25 mg] 1 each PO DAILY # 30 tablet 02/22/17 Aspirin [Aspirin 81 mg Chewable Tablet] 81 mg PO DAILY #0 tab.chew 02/22/17 Atorvastatin Calcium [Lipitor 20 mg Tablet] 20 mg PO QHS #0 tablet 02/22/17 Hydralazine HCl 100 mg PO TID #90 tablet 02/22/17 History of Present Illness History of Present Illness: ADEN ELMORE is a 56 year old female known to my practice but noncompliant with medical treatment recommendation ad followup. She presented to the ED with complain of left sided numbness with tingling sensation and slurred speech for couple of days. She reported falling at outside of her home due to buckled left knee on 02/16/2017. Patient reported numbness felling in her left and and foot. She zamora been out of her anti-hypertensive medication for about 1 week due to leaving medication behind in [facility] during visit with her father. She denied any chest pain, palpitation, loss of consciousness, chest pain, nausea, vomiting, or abdominal pain. Her initial evaluation was remarkable for significantly elevated blood pressure. Her co-morbidities include hypertension, Osteoarthritis, Depression and systemic Lupus. She denied any illicit drug usage , cigarette smoking or alcohol abuse. Hospital Course Hospital Course: Patient was admitted to [facility] for hypertensive urgency and concern for possible stroke like syndrome. Her neurologic check did not support acute stroke. MRI of brain did not revealed any acute stroke findings. There is worsening of white matter flare process compared to her 2013 MRI findings. This issue will be further evaluated during office follow up. Her blood pressure has improved but not at fully non hypertensive range. She will be discharged home on listed anti hypertensive medications. She will follow up in the office as instructed upon discharge. Physical Exam Vital Signs: Temp Pulse Resp BP Pulse Ox 97.5 F 66 16 159/90 H 100 02/22/17 04:40 02/22/17 04:40 02/22/17 04:40 02/22/17 04:40 02/22/17 04:40 Intake & Output 02/21/17 02/22/17 02/23/17 06:59 06:59 06:59 Intake Total 1466 610 Output Total 1950 700 Balance -484 -90 Weight 48.9 kg Physical Exam: General appearance: PRESENT: no acute distress, well-developed, well-nourished Head exam: PRESENT: atraumatic, normocephalic Eye exam: PRESENT: conjunctiva pink, EOMI, PERRLA. ABSENT: scleral icterus Mouth exam: PRESENT: moist, tongue midline Respiratory exam: PRESENT: clear to auscultation meena Cardiovascular exam: PRESENT: RRR. ABSENT: diastolic murmur, rubs, systolic murmur GI/Abdominal exam: PRESENT: normal bowel sounds, soft. ABSENT: distended, guarding, mass, organomegaly, rebound, tenderness Extremities exam: ABSENT: pedal edema Neurological exam: PRESENT: alert, awake, oriented to person, oriented to place , oriented to time, oriented to situation, CN II-XII grossly intact. ABSENT: motor sensory deficit Psychiatric exam: PRESENT: appropriate affect, normal mood. ABSENT: homicidal ideation, suicidal ideation Skin exam: PRESENT: dry, intact, warm. ABSENT: cyanosis, rash Results Laboratory Results: 02/20/17 05:50 02/20/17 05:50 Impressions: Chest X-Ray 02/19/17 17:15 IMPRESSION: NO ACUTE RADIOGRAPHIC FINDING IN THE CHEST. Head CT 02/19/17 17:15 IMPRESSION: Stable unenhanced CT of the brain. No acute findings. Brain MRI with MRA 02/19/17 18:18 IMPRESSION: NORMAL MRA OF THE [place]. Head MRI 02/19/17 18:18 IMPRESSION: Fairly extensive periventricular subcortical white matter changes consistent with either a demyelinating process or dysmyelinating process. Findings have progressed since 2012. Neck MRA 02/19/17 18:18 IMPRESSION: NORMAL MRA OF THE CAROTIDS WITH AND WITHOUT CONTRAST. Qualifiers PATEINT BEING DISCHARGED WITH ANY OF THE FOLLOWING DIAGNOSIS?: No Plan Discharge Plan: Discharge home today. Follow up in the office as instructed upon discharge. Time Spent: Less than 30 Minutes
[2017-02-22 09:25] VITALS: BP 127/78
[2017-02-22] MEDS: VALSARTAN 160 MG TABLET PO SCH (10:31)
[2017-02-22] MEDS: ENOXAPARIN SODIUM INJ 40 MG/0.4 ML DISP.SYRIN SUBCUT SCH (10:32)
[2017-02-22] MEDS: AMLODIPINE BESYLATE 10 MG TABLET PO SCH (10:32)
[2017-02-22] MEDS: ASPIRIN 81 MG TABLET, CHEWABLE PO SCH (10:32)
== END 2017-02-22 12:32 | disposition home or self-care (01) | DRG 305 ==
LOC: ER 16:32 → EH 21:33 → UNDOADMIN 21:33 → EH 02-20 02:50 → 3S 02-20 02:50 → EH 02-20 05:28 → 3S 02-20 05:28
PROVIDERS: ADMIT Internal Medicine Geriatric Medicine; ATTEND Internal Medicine Geriatric Medicine
DX: I16.0 Hypertensive urgency (principal); I12.9 Hypertensive chronic kidney disease with stage 1 through stage 4 chronic kidney disease, or unspecified chronic kidney disease; N18.3 Chronic kidney disease, stage 3 (moderate); R47.81 Slurred speech; R29.810 Facial weakness; R20.0 Anesthesia of skin; M19.90 Unspecified osteoarthritis, unspecified site; M32.9 Systemic lupus erythematosus, unspecified; F32.9 Major depressive disorder, single episode, unspecified; T46.5X6A Underdosing of other antihypertensive drugs, initial encounter; Z91.138 Patient's unintentional underdosing of medication regimen for other reason; Y92.009 Unspecified place in unspecified non-institutional (private) residence as the place of occurrence of the external cause
CPT/HCPCS: 36415; 70450; 70544; 70549; 70553; 71010; 80053; 82272; 82465; 82550; 82553; 82962; 84443; 84484; 85025; 85610; 93005; 93010; 93306; 96374; 99291; A9576; G8984-GO; G8985-GO; J1650; J3490

== ENCOUNTER → 2017-03-01 | Outpatient (CLI) | payer MEDICARE ==
[2017-03-01 13:06] LABS: ABSOLUTE EOSINOPHILS # (AUTO) 0.1 10^3/uL (0.0-0.6); ABSOLUTE LYMPHOCYTES (AUTO) 1.7 10^3/uL (0.5-4.7); ABSOLUTE MONOCYTES (AUTO) 0.5 10^3/uL (0.1-1.4); ABSOLUTE NEUT (AUTO) 3.1 10^3/uL (1.7-8.2); BASOPHILS % (AUTO) 0.3 % (0-2); EOSINOPHILS % (AUTO) 1.1 % (0-6); HEMATOCRIT 35.4 % (36.0-47.0); HEMOGLOBIN 11.5 g/dL (12.0-15.5); HGB HCT DIFFERENCE -0.9; LYMPHOCYTES % (AUTO) 31.5 % (13-45); MEAN CORPUSCULAR HEMOGLOBIN 26.4 pg (27.0-33.4); MEAN CORPUSCULAR HGB CONC 32.4 g/dL (32.0-36.0); MEAN CORPUSCULAR VOLUME 81 fl (80-97); MONOCYTES % (AUTO) 9.3 % (3-13); RED BLOOD COUNT 4.35 10^6/uL (3.72-5.28); RED CELL DISTRIBUTION WIDTH 16.5 % (11.5-14.0); SEGMENTED NEUTROPHILS % (AUTO) 57.8 % (42-78); WHITE BLOOD COUNT 5.4 10^3/uL (4.0-10.5)
[2017-03-01 13:55] LABS: ERYTHROCYTE SEDIMENTATION RATE 33 mm/hr (0-30)
== END ==
LOC: OD 11:58
PROVIDERS: ATTEND Internal Medicine Geriatric Medicine
DX: R63.4 Abnormal weight loss (principal)
CPT/HCPCS: 36415; 84436; 84443; 85025; 85652